=== PATIENT | male | born 1950 | race Two or more races ===

== ENCOUNTER 2018-05-17 19:17 | Emergency (ER) | payer OTHER ==
[~2018-05-17] VITALS: Ht 170.2 cm; Wt 83.0 kg
[2018-05-17] MEDS ORDERED: LIPITOR80 MG (19:28)
[2018-05-17] MEDS ORDERED: ALTACE10 MG (19:28)
[2018-05-17] MEDS ORDERED: [UNRECOGNIZED DRUG - OTHER] (19:28)
[2018-05-17] MEDS ORDERED: GLUCOPHAGE XR500 MG (19:29)
[2018-05-17] MEDS ORDERED: [UNRECOGNIZED DRUG - SUPPLY] (19:30)
[2018-05-17] MEDS ORDERED: ASA-EC81 MG (19:30)
[2018-05-17] MEDS ORDERED: FENOFIBRATE43 MG (19:30)
[2018-05-17] MEDS ORDERED: TRANXENE T-TAB7.5 MG (19:31)
[2018-05-17] MEDS ORDERED: VISTARIL25 MG (19:31)
[2018-05-17] MEDS ORDERED: CIALIS5 MG (19:32)
[2018-05-17] MEDS ORDERED: ANDROGEL1.25 GM (19:32)
== END 2018-05-17 21:53 | disposition home or self-care (01) ==
LOC: ER 19:17
DX: S61.230A Puncture wound without foreign body of right index finger without damage to nail, initial encounter (principal); W45.0XXA Nail entering through skin, initial encounter; Y93.89 Activity, other specified; Y92.89 Other specified places as the place of occurrence of the external cause; Y99.8 Other external cause status

== ENCOUNTER 2023-01-29 13:41 | Outpatient (CLI) | payer OTHER ==
[~2023-01-29 13:41] MED LIST: ALTACE10 MG; ANDROGEL1.25 GM; ASA-EC81 MG; CIALIS5 MG; FENOFIBRATE43 MG; GLUCOPHAGE XR500 MG; LIPITOR80 MG; TRANXENE T-TAB7.5 MG; VISTARIL25 MG; [UNRECOGNIZED DRUG - OTHER]; [UNRECOGNIZED DRUG - SUPPLY]
== END 2023-01-29 13:43 | disposition home or self-care (01) ==
LOC: RAD 13:41
DX: M25.562 Pain in left knee (principal); Z88.0 Allergy status to penicillin

== ENCOUNTER → 2024-09-27 | Outpatient (CLI) | payer OTHER | END | disposition home or self-care (01) | LOC: RAD 11:22 | PROVIDERS: ATTEND Podiatrist Foot Surgery | DX: M20.11 Hallux valgus (acquired), right foot (principal); M20.12 Hallux valgus (acquired), left foot ==